=== PATIENT | female | born 2000 | race African-American/Black ===

== ENCOUNTER 2024-06-15 15:22 | Inpatient (IN) | payer SELFPAY ==
[~2024-06-15] VITALS: Ht 157.5 cm; Wt 87.5 kg
[2024-06-15 16:18] LABS: BASOPHILS # (AUTO) 0.1 (0.0-0.1); BASOPHILS % 0.5 % (0.0-1.0); EOSINOPHILS # (AUTO) 0.1 (0.0-0.4); EOSINOPHILS % 1.3 % (0.0-6.0); LYMPHOCYTES # (AUTO) 2.3 (1.0-3.2); MEAN CORPUSCULAR HEMOGLOBIN 21.1 pg (28-32); MEAN CORPUSCULAR HGB CONC 27.7 g/dL (31-35); MEAN CORPUSCULAR VOLUME 75.9 fL (81-99); MONOCYTES # (AUTO) 0.6 (0.2-0.8); MONOCYTES % 5.6 % (4.4-11.3); NEUTROPHILS # (AUTO) 7.3 (2.1-6.9); PLATELET COUNT 554 x10e3/uL (140-360); RED BLOOD COUNT 2.66 x10e6/uL (3.6-5.1); RED CELL DISTRIBUTION WIDTH 16.2 % (11.7-14.4); WHITE BLOOD COUNT 10.47 x10e3/uL (4.8-10.8)
[2024-06-15 16:22] LABS: HEMATOCRIT 20.2 % (34.2-44.1); HEMOGLOBIN 5.6 g/dL (12.0-16.0)
[2024-06-15 16:27] LABS: INR 1.04; PROTHROMBIN TIME 14.1 seconds (11.9-14.5)
[2024-06-15 16:28] LABS: PARTIAL THROMBOPLASTIN TIME 33.3 seconds (23.8-35.5)
[2024-06-15 16:35] LABS: ALBUMIN 3.5 g/dL (3.5-5.0); ALBUMIN/GLOBULIN RATIO 0.9 (0.8-2.0); ANION GAP 12.7 mmol/L (8-16); BILIRUBIN,TOTAL 0.2 mg/dL (0.2-1.2); CALCIUM 8.7 mg/dL (8.4-10.2); CREATININE, SERUM 0.66 mg/dL (0.57-1.11); POTASSIUM 3.7 mmol/L (3.5-5.1); TOTAL PROTEIN 7.2 g/dL (6.5-8.1)
[2024-06-15] MEDS ORDERED: ONDANSETRON HCL INJ 2MG/ML 2ML 2 MG/ML VIAL IV PRN (18:45)
[2024-06-15] MEDS: SODIUM CHLORIDE 0.9% 250ML 250 ML IV ONE (19:33)
[2024-06-15] MEDS ORDERED: HYDRALAZINE HCL 20 MG/ML VIAL IV PRN (20:15)
[2024-06-15] MEDS ORDERED: POLYETHYLENE GLYCOL 3350 17 GM PACK PO PRN (20:15)
[2024-06-15] MEDS ORDERED: ACETAMINOPHEN 325 MG TAB PO PRN (20:15)
[2024-06-15 20:26] LABS: FERRITIN 3.14 ng/mL (4.63-204.00)
[2024-06-16] MEDS: SODIUM CHLORIDE 0.9% 250ML 250 ML IV ONE (03:25)
[2024-06-16 09:50] LABS: ANION GAP 11.1 mmol/L (8-16); CALCIUM 8.1 mg/dL (8.4-10.2); CREATININE, SERUM 0.62 mg/dL (0.57-1.11); POTASSIUM 4.1 mmol/L (3.5-5.1); TOTAL PROTEIN 6.1 g/dL (6.5-8.1)
[2024-06-16 09:55] LABS: BASOPHILS # (AUTO) 0.1 (0.0-0.1); BASOPHILS % 0.6 % (0.0-1.0); EOSINOPHILS # (AUTO) 0.1 (0.0-0.4); EOSINOPHILS % 1.6 % (0.0-6.0); HEMOGLOBIN 9.7 g/dL (12.0-16.0); LYMPHOCYTES # (AUTO) 1.8 (1.0-3.2); LYMPHOCYTES % 21.2 % (18.0-39.1); MEAN CORPUSCULAR HEMOGLOBIN 25.2 pg (28-32); MEAN CORPUSCULAR HGB CONC 31.3 g/dL (31-35); MEAN CORPUSCULAR VOLUME 80.5 fL (81-99); MONOCYTES # (AUTO) 0.7 (0.2-0.8); NEUTROPHILS # (AUTO) 5.8 (2.1-6.9); NEUTROPHILS % 67.1 % (38.7-80.0); PLATELET COUNT 481 x10e3/uL (140-360); RED BLOOD COUNT 3.85 x10e6/uL (3.6-5.1); RED CELL DISTRIBUTION WIDTH 16.6 % (11.7-14.4); WHITE BLOOD COUNT 8.62 x10e3/uL (4.8-10.8)
[2024-06-16] MEDS ORDERED: SODIUM CHLORIDE 0.9% 0 ML ONE (10:14)
[2024-06-16] MEDS: FAMOTIDINE 20 MG TAB PO SCH (10:16)
[2024-06-16] MEDS: FERROUS SULFATE 325 MG TAB PO SCH (10:16)
[2024-06-16] MEDS: DOCUSATE SODIUM 100 MG CAP PO SCH (10:16)
[2024-06-16] MEDS: ASCORBIC ACID 500 MG TAB PO SCH (10:16)
[2024-06-16] MEDS: IRON SUCROSE 100 MG in SODIUM CHLORIDE 0.9% 100 ML IV ONE (10:47)
[2024-06-16 19:18] VITALS: PULSE 90; RESP 21; TEMP 98.4
[2024-06-16] MEDS: MEDROXYPROGESTERONE ACETATE 2.5 MG TAB PO ONE (19:26)
[2024-06-16 20:21] LABS: HEMATOCRIT 32.6 % (34.2-44.1); HEMOGLOBIN 10.2 g/dL (12.0-16.0)
[2024-06-16 20:30] VITALS: BP 117/80; PULSE 86; RESP 16; TEMP 98.2; O2SAT 100
[2024-06-16 22:28] VITALS: BP 117/80; PULSE 86; RESP 16; TEMP 98.2; O2SAT 100
[2024-06-17] VITALS: BP 115/69; PULSE 76; RESP 18; TEMP 96.3; O2SAT 100
[2024-06-17 04:00] VITALS: BP 114/74; PULSE 84; RESP 17; TEMP 97.2; O2SAT 100
[2024-06-17 06:01] LABS: BASOPHILS % 0.3 % (0.0-1.0); EOSINOPHILS # (AUTO) 0.3 (0.0-0.4); HEMATOCRIT 29.4 % (34.2-44.1); HEMOGLOBIN 8.9 g/dL (12.0-16.0); LYMPHOCYTES # (AUTO) 3.2 (1.0-3.2); LYMPHOCYTES % 30.8 % (18.0-39.1); MEAN CORPUSCULAR HEMOGLOBIN 24.9 pg (28-32); MEAN CORPUSCULAR HGB CONC 30.3 g/dL (31-35); MEAN CORPUSCULAR VOLUME 82.4 fL (81-99); MONOCYTES # (AUTO) 0.8 (0.2-0.8); NEUTROPHILS # (AUTO) 5.8 (2.1-6.9); NEUTROPHILS % 56.5 % (38.7-80.0); PLATELET COUNT 457 x10e3/uL (140-360); RED BLOOD COUNT 3.57 x10e6/uL (3.6-5.1); RED CELL DISTRIBUTION WIDTH 16.8 % (11.7-14.4); WHITE BLOOD COUNT 10.32 x10e3/uL (4.8-10.8)
[2024-06-17 08:00] VITALS: BP 114/74; PULSE 84; RESP 17; TEMP 97.2; O2SAT 100
[2024-06-17 08:23] VITALS: BP 113/71; PULSE 83; RESP 20; TEMP 98.4; O2SAT 100
[2024-06-17] MEDS ORDERED: ACETAMINOPHEN325 M1 PO (12:37)
[2024-06-17] MEDS ORDERED: ASCORBIC ACID500 MG PO (12:37)
[2024-06-17] MEDS ORDERED: IRON325 M1 PO (12:37)
[2024-06-17] MEDS ORDERED: MEDROXYPROGEST2.5 MG PO (12:40)
[2024-06-17 12:43] VITALS: BP 120/78; PULSE 80; RESP 20; TEMP 98.2; O2SAT 100
[2024-06-17] MEDS ORDERED: ONDANSETRON HCL 4 MG ORAL DISINTEGRATING TAB PO PRN (12:45)
[2024-06-17] MEDS: MEDROXYPROGESTERONE ACETATE 2.5 MG TAB PO SCH (14:27)
[2024-06-17] MEDS: IRON SUCROSE 100 MG in SODIUM CHLORIDE 0.9% 100 ML IV ONE (14:27)
[2024-06-18] MEDS ORDERED: MEDROXYPROGESTERONE ACETATE 2.5 MG TAB PO SCH (09:00)
== END 2024-06-17 16:44 | disposition home or self-care (01) | DRG 812 ==
LOC: ER 17:01 → ERHOLD 18:37 → MED/SURG2 06-16 20:33
PROVIDERS: ADMIT Internal Medicine; ATTEND Internal Medicine
PROC: 30233N1 Transfusion of Nonautologous Red Blood Cells into Peripheral Vein, Percutaneous Approach (ICD-10-PCS; principal; 2024-06-15)
DX: D50.9 Iron deficiency anemia, unspecified (principal); N93.8 Other specified abnormal uterine and vaginal bleeding; D75.839 Thrombocytosis, unspecified; R00.0 Tachycardia, unspecified; R11.0 Nausea; R42 Dizziness and giddiness; Z87.42 Personal history of other diseases of the female genital tract; F17.200 Nicotine dependence, unspecified, uncomplicated
CPT/HCPCS: 36415; 80053; 82728; 83540; 84466; 84702; 85014; 85018; 85025; 85610; 85730; 86850; 86900; 86920; 93005; 99284; J1756; J7050; P9016